=== PATIENT | female | born 1975 | race Caucasian/White ===

== ENCOUNTER → 2017-07-20 | Emergency (ER) | payer MEDICAID ==
[~2017-07-20] VITALS: Ht 180.3 cm; Wt 77.1 kg
[2017-07-20 10:46] VITALS: BP 102/68
[2017-07-20 11:38] LABS: Urine Bacteria NONE SEEN /hpf (None Seen); Urine Blood 2+ /uL (Negative); Urine Mucus FEW (None Seen); Urine Specific Gravity 1.016 (1.001-1.035); Urine WBC 5 /hpf (0 - 5)
== END | disposition left against medical advice (07) ==
LOC: EDUNIT# 10:18 → ER 10:24 → EDBD 10:24
DX: M54.9 Dorsalgia, unspecified (principal); Z53.21 Procedure and treatment not carried out due to patient leaving prior to being seen by health care provider; Z87.442 Personal history of urinary calculi
CPT/HCPCS: 81001; 81025